=== PATIENT | male | born 2000 | race Caucasian/White ===

== ENCOUNTER 2019-04-13 13:31 | Emergency (ER) | payer OTHER ==
[~2019-04-13] VITALS: Ht 182.9 cm; Wt 95.5 kg
[2019-04-13] MEDS ORDERED: CILOXAN .3% EY2.5 ML OS (14:02)
[2019-04-13 14:24] VITALS: BP 139/69; PULSE 109
== END 2019-04-13 14:25 | disposition home or self-care (01) ==
LOC: COL.ER 13:31
DX: H18.822 Corneal disorder due to contact lens, left eye (principal)